=== PATIENT | male | born 1975 | race Caucasian/White ===

== ENCOUNTER 2020-04-23 11:21 | Emergency (ER) | payer SELFPAY ==
[2020-04-23 11:33] VITALS: BP 124/91; PULSE 110; RESP 16; TEMP 36.2; O2SAT 99
--- NOTE | 2020-04-23 13:04 | ED.GENADULT ---
HPI - General Adult General Chief complaint: Unspecified Stated complaint: SORE THROAT, DONT FEEL GREAT Time Seen by Provider: 04/23/20 12:30 Source: patient Mode of arrival: ambulatory Limitations: no limitations History of Present Illness HPI narrative: Patient is a 44-year-old male who presents with multiple complaints. Patient reports sore throat, generalized weakness and body aches x2 to 3 days. He denies fever. He denies cough or shortness of breath. He reports that he lives in a retirement environment but is unknown Covid exposure. He denies taking [id number] medications for pain at this time. complaint: Sore throat Related Data Allergies Allergy/AdvReac Type Severity Reaction Status Date / Time naltrexone Allergy Swelling Verified 04/23/20 11:44 Review of Systems Review of Systems: Narrative: CONSTITUTIONAL: Denies fever, chills, or sweats. EYES: Denies visual changes, redness, or discharge. ENT: Reports sore throat CARDIOVASCULAR: Denies chest pain, palpitations, or edema. RESPIRATORY: Denies cough or dyspnea. GASTROINTESTINAL: Denies abdominal pain, nausea, vomiting, or diarrhea. GENITOURINARY: Denies dysuria or hematuria. SKIN: Denies rash or itching. MUSCULOSKELETAL: Denies back pain, joint pain, or myalgia. NEUROLOGIC: Reports headache, weakness and generalized body aches. PSYCHIATRIC: Denies anxiety or depression. PMFSH Social History Social History Gender identity (if verbalized by the patient): Male Exam Narrative: Exam Narrative: GENERAL: Well-appearing, well-nourished, and in no acute distress. HEAD: Normocephalic, atraumatic. EYES: EOMI. No redness or drainage. ENT: Mucous membranes pink and moist. Nares clear. No rhinorrhea. Throat normal with no erythema, edema and exudate. Uvula midline. NECK: AROM. Supple. No lymphadenopathy. CHEST: No respiratory distress. HEART: Regular rate and rhythm. EXTREMITIES: Normal range of motion. SKIN: Warm, dry, no rash. NEURO: No focal deficits. Alert and oriented x3. Gait steady. PSYCH: Normal affect. No signs of depression or anxiety. Course Vital Signs Vital signs: Vital Signs Temperature 36.2 C L 04/23/20 11:33 Pulse Rate 110 H 04/23/20 11:33 Respiratory Rate 16 04/23/20 11:33 Blood Pressure 124/91 H 04/23/20 11:33 Pulse Oximetry 99 04/23/20 11:33 Temperature 36.2 C L 04/23/20 11:33 Pulse Rate 110 H 04/23/20 11:33 Respiratory Rate 16 04/23/20 11:33 Blood Pressure 124/91 H 04/23/20 11:33 Pulse Oximetry 99 04/23/20 11:33 Reviewed. Patient has been instructed to follow-up with his PCP regarding his blood pressure. Medical Decision Making MDM Narrative Medical decision making narrative: Patient's rapid strep and influenza are negative at this time. Discussed Covid testing with patient. Patient to have Covid test at this time. Patient is aware of quarantine and isolation. Patient is stable for discharge to home with outpatient follow-up as discussed. Differential Diagnosis Differential Diagnosis: Covid, strep throat, pharyngitis, viral illness, pneumonia Vital Signs Vital Signs: Vital Signs Temperature 36.2 C L 04/23/20 11:33 Pulse Rate 110 H 04/23/20 11:33 Respiratory Rate 16 04/23/20 11:33 Blood Pressure 124/91 H 04/23/20 11:33 Pulse Oximetry 99 04/23/20 11:33 Temperature 36.2 C L 04/23/20 11:33 Pulse Rate 110 H 04/23/20 11:33 Respiratory Rate 16 04/23/20 11:33 Blood Pressure 124/91 H 04/23/20 11:33 Pulse Oximetry 99 04/23/20 11:33 Reviewed Lab Data Labs: Strep Screen Presumptive Negative *(Reference Range: Negative)* Reviewed Critical Care Time Critical Care Time Critical Care Time: No Discharge Plan Discharge Clinical Impression: Viral respiratory illness, Pharyngitis Patient Disposition: Home, Self-Care Condition: Stable Instructions: Antibiotic Form, COVID-19 (Coronavirus Dise
[2020-04-24 20:47] LABS: SARS-CoV-2 RNA PCR Negative
== END 2020-04-23 13:26 | disposition home or self-care (01) ==
PROVIDERS: Emergency Provider Nurse Practitioner
DX: B34.9 Viral infection, unspecified (principal); J02.9 Acute pharyngitis, unspecified; Z20.822 Contact with and (suspected) exposure to COVID-19
CPT/HCPCS: 87081; 87880; 99283; C9803; U0003